=== PATIENT | male | born 1960 | race Two or more races ===

== ENCOUNTER 2024-08-03 13:04 | Outpatient (RCR) | payer MEDICAID, SELFPAY ==
--- NOTE | 2024-08-03 14:32 | PT.ODAYNRPT ---
PT Outpatient Daily Note OP Daily Note Outpatient Physical Therapy Treatment Date: 08/03/24 Subjective: Pt points to the R side of the lowest ribs as site of pain that hasn't changed much since starting therapy Objective: See F/S for therex MT: STM R side ribs 10-12 x7' Assessment: Mod/high TTP of B lower ribs with MT Plan: Continue per POC Length of Time (minutes) of Treatment: 30 Minutes Procedure Charges Therapeutic Exercise 30 minutes: Yes
== END 2024-08-28 23:59 | disposition home or self-care (01) ==
LOC: CPTX 13:04
PROVIDERS: PCP Physician Assistant; Referring Provider Physician Assistant; Visit Provider Physician Assistant
DX: M54.50 Low back pain, unspecified (principal)
CPT/HCPCS: 97110

== ENCOUNTER 2024-09-15 12:47 | Outpatient (RCR) | payer MEDICAID, SELFPAY ==
--- NOTE | 2024-09-15 15:22 | PT.ODS1RPT ---
PT OP Progress/Discharge Note Date of Service: 09/15/24 Progress Note/DC Note Progress Note/Discharge Note: DC Note Patient Information Visit Reasons: Low back pain Service Continue Service or Discharge: Discharge Discharge Date: 09/15/24 Status Subjective: Pt reports the back locks up when he moves and it hurts. He points to R side of lower T/S as site of pain. Increased with bending fwd Objective: See F/S for therex Same as time of evalution Assessment: Pt has attended the eval and 4 Rx sessions with limited progress with therapy goals due to continued pain unchanged since starting therapy. Pain consistent with mechanical facet pain and possible anterior vertebral osteophytes as seen on chest Xray lateral spine view. Pt not likely going to meet goals due to this. PT recommends further diagnostic imaging of T/S and L/S to assess anterior osteophytes. Plan: D/C Procedure Charges Therapeutic Exercise 30 minutes: Yes
== END 2024-09-28 23:59 | disposition home or self-care (01) ==
LOC: CPTX 12:47
PROVIDERS: PCP Physician Assistant; Referring Provider Physician Assistant; Visit Provider Physician Assistant
DX: M54.50 Low back pain, unspecified (principal)
CPT/HCPCS: 97110